=== PATIENT | male | born 1960 | race Asian ===

== ENCOUNTER 2023-03-31 09:45 | Emergency (ER) | payer OTHER ==
[2023-03-31] MEDS ORDERED: KETOROLAC 30 MG/ML VIAL IM STA (11:43)
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
--- NOTE | 2023-03-31 12:07 | XRAY Report ---
PROCEDURE: Chest 1 View X-Ray INDICATIONS: chest pain TECHNIQUE: One view of the chest was acquired. COMPARISON: None. FINDINGS: Surgical changes and devices: None. Lungs and pleura: No dense consolidation or pleural effusion. Mediastinum: Mediastinal contours appear normal. Heart size is normal. Bones and chest wall: No suspicious bony lesions. Overlying soft tissues appear unremarkable. IMPRESSION: No acute radiographic abnormality. Reviewed by: Mekhi Anderson MD on 03/31/2023 12:06 PM PDT Approved by: Mekhi Anderson MD on 03/31/2023 12:06 PM PDT Station ID: [id number]
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
[2023-03-31 13:54] VITALS: BP 207/70
== END 2023-03-31 13:59 | disposition home or self-care (01) ==
LOC: ED 09:45
DX: S32.040A Wedge compression fracture of fourth lumbar vertebra, initial encounter for closed fracture (principal); V89.2XXA Person injured in unspecified motor-vehicle accident, traffic, initial encounter; Y92.410 Unspecified street and highway as the place of occurrence of the external cause; I10 Essential (primary) hypertension; Z79.899 Other long term (current) drug therapy
CPT/HCPCS: 96372; 99283; 99284